=== PATIENT | male | born 1990 | race Caucasian/White ===

== ENCOUNTER 2022-11-25 09:34 | Inpatient (IN) ==
[2022-11-25] MEDS ORDERED: SODIUM CHLORIDE 0.9% 1000ML 1,000 ML IV ONE ×2 (09:51→12:04)
--- NOTE | 2022-11-25 09:57 | Emergency Department Note ---
Impression & Plan Alcohol abuse, in remission, Generalized anxiety disorder, Alcohol withdrawal syndrome ED Provider Note NAME: BRITNEY HASSAN AGE: 32 SEX: M : 1990 ARRIVES VIA: Ambulance INFORMANT: Patient and EMS ED PROVIDER(S): Matty Stewart DO CHIEF COMPLAINT: ETOH abuse HPI: Patient is a 32-year-old male with past medical history of depression, anxiety and alcohol abuse who presents to the ER as he was at work today he became very worked up started having paresthesias in bilateral upper and lower extremities and had cramping of the arms. He felt like he could not hear any thing at this time this gradually has abated. Denies any headache or change in vision. He does have some chest tightness which occurred when this started. He admits that he gets this when he has these intermittent panic attacks. Denies any belly pain but does admit to some nausea and vomiting when he tries to stop drinking. No dysuria, urgency, or frequency. No other exacerbating or remittin g factors. Last drink was yesterday around noon. He drinks about 20 beers a day. Denies any suicidal or homicidal ideations. No auditory visual hallucinations. PAST MEDICAL HISTORY:See Below PAST SURGICAL HISTORY:See Below FAMILY HISTORY:See Below SOCIAL HISTORY:See Below HOME MEDICATIONS:See Below ALLERGIES:See Below VITALS:See Below PHYSICAL EXAMINATION: GENERAL: Sitting up in bed, alert, well appearing, well nourished, no distress, non-toxic EYE EXAM: normal conjunctiva. OROPHARYNX: no exudate, no erythema, lips, buccal mucosa, and tongue normal and mucous membranes are moist NECK: supple, no nuchal rigidity, no adenopathy, non-tender LUNGS: Clear to auscultation. Normal chest wall mechanics HEART: no murmurs, S1 normal and S2 normal ABDOMEN: abdomen soft, non-tender, normo-active bowel sounds, no masses, no rebound or guarding. UPPER EXTREMITIES: upper extremities are grossly normal. LOWER EXTREMITIES: No pitting edema. NEURO EXAM: Normal sensorium, cranial nerves II-XII grossly intact, normal spee ch, no gross weakness of arms, no gross weakness of legs. PSYCH: Denies any suicidal or homicidal ideations. No auditory visual hallucinations. MEDICAL DECISION MAKING: Patient is a 32-year-old male who presents the ER as he feels he is having a panic attack. Discussed with EMS who brought the patient in. IV was established blood work was obtained. Labs show no significant leukocytosis. No anemia. BMP with a mild anion gap of 18. T bili 1.7. LFTs TSH and lipase was unremarkable. UA was contaminated. Tox was negative with exception of marijuana. Alcohol 40. Patient was initially given IV fluids and then he started vomiting and became very tachycardic, tachypneic and having tremors. He was given Ativan and this improved. This reoccurred and he was again given 2 mg of Ativan as his heart rate went up into the 140s and his blood pressure trended up to 160s. Following this I do not feel he will tolerate outpatient treatment/Librium as he cannot keep anything down when this occurs. I discussed the case with Dr. Lopez for admission and further work-up in regards to the patient's presentation and treatment. Prior to talking to the hospitalist I had already spoke with care managers and were setting up outpatient treatment but after failing IV medications for second time I did feel he was prudent to bring him into the hospital. Do favor that this is all secondary to alcohol withdrawal. He has complete benign abdominal exam Triage Nursing notes reviewed. Limited review of prior medical records performed Vital Signs: reviewed and remarkable for tachycardia, hypertension Differential diagnosis: Differential diagnoses includes but is not limited to gastritis, peptic ulcer disease, GERD, gallbladder disease, pancreatitis, small bowel obstruction. ER treatment provided: See below Diagnostics interpreted by me include EKG and cardiac monitoring as listed below: -Cardiac Monitoring: An order was placed for continuous cardiac monitoring. The monitor shows a rate of 142 with sinus rhythm. -ECG: none -Laboratory studies:Interpreted by me as stated above in MDM and shown below. Consultation(s): As described above in MDM Procedures:none Critical Care: None Past Med/Surg History Medical History Alcohol abuse, in remission (~11/2020) Generalized anxiety disorder Major depression in partial remission (~2018) Surgical History Hx of sinus surgery Family History Father Hypertension Arthritis rhematoid Denies family history of Ovarian cancer Prostate cancer Diabetes Dyslipidemia Breast cancer Lung cancer Cancer Social History Smoking Status: Never smoker Second Hand Exposure: No; Hx Alcohol Use: Yes Hx Substance Use: Yes Preferred Language: Bolivian Communication Ability: Effective Visual Impairment: Limited Hearing Ability: Normal marital status: Single Current Living Situation Comment: room mate current occupational status: employed current occupation: [employer] How many Children do You have: 0 Feels Safe at Home: Yes Childhood Exposure to Second-Hand Smoke: Yes caffeine: Yes Dental Care, Regularly: Yes Physical Activity Frequency: 5-6 Times per Week Physical Activity Frequency Comment: walking/active lifestyle Seatbelt Use: always Sunscreen Use: Yes Do you think of yourself as: straight/heterosexual Gender Identity: Male Allergies Allergies Allergy/AdvReac Type Severity Reaction Status Date / Time No Known Allergies Allergy Verified 11/25/22 09:53 Home Meds Previous Rx's Medication Instructions Recorded bupropion HCl 300 mg 24 hr tablet, 300 mg PO QAM #30 tabs 06/24/22 extended release (Wellbutrin XL) Results & Data (ED) Vital Signs Vital Signs - 24 hr 11/25/22 10:03 Temperature 36.8 C Temperature Source Oral Pulse Rate 99 H Respiratory Rate 18 Respiratory Effort / Characteristics Non-Labored Respiratory Depth Normal Respiratory Pattern Regular Blood Pressure 157/85 H Blood Pressure Mean 109 Pulse Oximetry 98 Oxygen Delivery Method Room Air Sepsis New/Unexplained Change in Mental Status N/A Sepsis Action Taken by Nursing No Action Required Laboratory Data 11/25/22 Unknown 11/25/22 Unknown Administered Medications Discontinued Medications Sodium Chloride (Nss 1000ml) 1,000 mls @ 999 mls/hr IV .Q1H1M ONE Stop: 11/25/22 10:51 Last Infusion: 11/25/22 12:53 Dose: 0 mls/hr Documented By: Admin: 11/25/22 10:32 Dose: 999 mls/hr Documented By: PARISH Sodium Chloride (Nss 1000ml) 1,000 mls @ 999 mls/hr IV .Q1H1M ONE Stop: 11/25/22 13:04 Last Admin: 11/25/22 12:34 Dose: 999 mls/hr Documented By: LEONA Famotidine (Pepcid 20mg Iv Push) 20 mg in 5 mls @ 2.5 mls/min IV NOW STA Stop: 11/25/22 12:19 Last Admin: 11/25/22 12:34 Dose: 2.5 mls/min Documented By: LEONA Lorazepam (Lorazepam 2 Mg/1 Ml Vial) 1 mg IV NOW STA Stop: 11/25/22 10:25 Last Admin: 11/25/22 10:32 Dose: 1 mg Documented By: PARISH Lorazepam (Lorazepam 2 Mg/1 Ml Vial) 2 mg IV NOW STA Stop: 11/25/22 12:05 Last Admin: 11/25/22 12:33 Dose: 2 mg Documented By: LEONA Metoclopramide HCl (Metoclopramide Hcl Inj 5 Mg/Ml 2 Ml Vial) 10 mg IV NOW STA Stop: 11/25/22 10:25 Last Admin: 11/25/22 10:32 Dose: 10 mg Documented By: PARISH Ondansetron HCl (Ondansetron Inj 2 Mg/Ml 2 Ml Vial) 4 mg IV NOW STA Stop: 11/25/22 12:05 Last Admin: 11/25/22 12:34 Dose: 4 mg Documented By: LEONA Discharge Plan Visit Data Chief Complaint: Alcohol Withdrawal ED Provider: Matty Stewart Discharge Problem: Alcohol abuse, in remission, Generalized anxiety disorder, Alcohol withdrawal syndrome Discharge Instructions Interventions: ED Discharge Assessment Last Done: 11/25/22 13:40
[2022-11-25] MEDS ORDERED: LORazepam 2 MG/1 ML VIAL IV STA ×2 (10:24→12:04)
[2022-11-25] MEDS ORDERED: METOCLOPRAMIDE HCL INJ 5 MG/ML 2 ML VIAL IV STA (10:24)
[2022-11-25 10:41] LABS: Basophils # (auto) 0.07 K/uL (0-0.2); Basophils % (auto) 0.8 %; Eosinophils # (auto) 0.02 K/uL (0-0.50); Eosinophils % (auto) 0.2 %; Hematocrit (blood only) 41.8 % (40.1-51.0); Immature Granulocytes # (auto) 0.03 K/uL (0.00-0.02); Immature Granulocytes % (auto) 0.4 %; Lymphocytes # (auto) 0.94 K/uL (1.2-3.4); Mean Corpuscular Hemoglobin 33.5 pg (25.0-34.0); Mean Corpuscular Hgb Conc 35.9 g/dL (32.0-36.0); Mean Corpuscular Volume 93.3 fL (80.0-100.0); Mean Platelet Volume 9.2 fL (9.4-12.4); Monocytes # (auto) 0.47 K/uL (0.24-0.82); Monocytes % (auto) 5.5 %; Neutrophils # (auto) 7.02 K/uL (1.4-6.5); Neutrophils % (auto) 82.1 %; Platelet Count 317 K/uL (130-400); RDW Coefficient of Variation 12.3 % (11.5-14.5); RDW Standard Deviation 42.4 fL (36.4-46.3); Red Blood Count 4.48 M/uL (4.63-6.08); White Blood Count 8.55 K/ul (4.8-10.8)
[2022-11-25 10:55] LABS: Appearance Urine Clear (Clear); Bacteria Urine Automated Negative (Negative); Bilirubin Urine Negative (Negative); Blood Urine 2+ (Negative); Color Urine Dark Yellow; Glucose Urine UA Negative (Negative); Ketones Urine 2+ (Negative); Leukocyte Esterase Urine Negative (Negative); Nitrite Urine Negative (Negative); Specific Gravity Urine 1.019 (1.000-1.030); Urobilinogen Urine Negative (Negative); pH Urine 7.5 (4.5-7.5)
[2022-11-25 10:56] LABS: Protein Urine 1+ (Negative)
[2022-11-25 11:05] LABS: Albumin Globulin Ratio 1.3 (0.9-2); Albumin Level 4.7 gm/dl (3.4-5.0); BUN Creatinine Ratio 12.1 (10-20); Bilirubin,Total 1.7 mg/dl (0.2-1.0); Calcium 9.7 mg/dl (8.5-10.1); Creatinine Clr Calc Pharmacy 204.2 ml/min; Est GFR (African American) 147.2 ml/min; Globulin 3.6 gm/dl (2.5-4.0); Potassium 4.1 mmol/L (3.5-5.1); Total Protein 8.3 gm/dl (6.0-8.3)
[2022-11-25 11:16] LABS: Acetaminophen < 3 ug/ml (10-30); Salicylate < 3.0 mg/dl (3.0-30)
[2022-11-25 11:46] LABS: Amphetamines+Metham, Urine Neg (Neg); Barbiturates, Urine Neg (Neg); Benzodiazepine, Urine Neg (Neg); Cocaine, Urine Neg (Neg); MDMA (Ecstacy), Urine Neg (Neg); Methadone, Urine Neg (Neg); Opiate, Urine Neg (Neg); Phencyclidine, Urine Neg (Neg)
[2022-11-25] MEDS ORDERED: ONDANSETRON INJ 2 MG/ML 2 ML VIAL IV STA (12:04)
--- NOTE | 2022-11-25 12:14 | History & Physical Report ---
Date of Service November 25, 2022 History of Present Illness Primary Care Provider: Thanh Somers DO Kavon is a 32-year-old male with a past medical history of rheumatoid arthritis, general anxiety disorder on bupropion, and alcohol abuse who presents with nausea/vomiting and a desire to reduce/quit alcohol but who was not able to be discharged home with a Librium taper due to recurrent nausea/vomiting and inability to keep medications down despite symptomatic treatment including Zofran and Reglan, and who is requiring push doses of lorazepam for symptom control. He does not have any history of seizure, syncope. He is at risk of seizure due to bupropion concurrent use. Endorses 12-20 beer use per day for the last month. Before this was sober for several months. Endorses anxiety which has been worsened. Does take bupropion regularly which is helpful, denies SI/HI. Has never had a seizure, no family history of seizure. Denies hallucinations. Is tremulous. Denies chest pain, chest pressure. Intermittent medical marijuana which she originally got for arthritis with secondary benefit to his anxiety, no use in 2 weeks. No history of GI bleeding, denies melena. No fever, chills, sweats. Does endorse tremulousness and sweatiness, feels his withdrawal is worse than it has been in the past and was more shaky requiring him to seek medical attention. Would prefer not to be in the hospital, but has had difficulty with nausea/vomiting and inability to keep down oral Librium. Agreeable to inpatient treatment of withdrawal, and referral to outpatient alcohol cessation resources. Alcohol cessation resources provided. Full code. Medical History: Reviewed Medications: Reviewed Surgical History: Reviewed Allergies: Reviewed Social History: Endorses alcohol, medical marijuana use. Denies tobacco use Code Status: Full code Allergies Allergy/AdvReac Type Severity Reaction Status Date / Time No Known Allergies Allergy Verified 11/25/22 09:53 Home Medications Medication Instructions Recorded Confirmed Type bupropion HCl 300 mg 24 hr tablet, 300 mg PO QAM #30 tabs 06/24/22 11/25/22 Rx extended release (Wellbutrin XL) Past Med/Surg History Medical History Alcohol abuse, in remission (~11/2020) Generalized anxiety disorder Major depression in partial remission (~2018) Surgical History Hx of sinus surgery Family History Father Hypertension Arthritis rhematoid Denies family history of Ovarian cancer Prostate cancer Diabetes Dyslipidemia Breast cancer Lung cancer Cancer Social History Smoking Status: Never smoker Second Hand Exposure: No; Hx Alcohol Use: Yes Hx Substance Use: Yes Preferred Language: Arabic Communication Ability: Effective Visual Impairment: Limited Hearing Ability: Normal marital status: Single Current Living Situation Comment: room mate current occupational status: employed current occupation: [employer] How many Children do You have: 0 Feels Safe at Home: Yes Childhood Exposure to Second-Hand Smoke: Yes caffeine: Yes Dental Care, Regularly: Yes Physical Activity Frequency: 5-6 Times per Week Physical Activity Frequency Comment: walking/active lifestyle Seatbelt Use: always Sunscreen Use: Yes Do you think of yourself as: straight/heterosexual Gender Identity: Male Review of Systems Review of Systems: All systems reviewed & are unremarkable except as noted in HPI & below Physical Exam Physical Exam: General: A&Ox3. Appears tremulous. No acute distress HEENT: Atraumatic, normocephalic. Vision/hearing grossly intact. Pupils equal and reactive to light. Pulm: CTAB A&P. -wheezes, -rales, -rhonchi. Symmetrical chest rise. No increased work of breathing. No respiratory distress. Cardiac: Tachycardic, regular. No murmurs radial pulses intact and symmetrical. Abdominal: Mild epigastric tenderness, no rebound, soft, no guarding. BS present. Extremities: Warm, slightly moist. Bilateral hand tremor on extension, no asterixis. Sensation to soft touch intact in hands and feet. 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 Results & Data Results & Data ([facility]) Vital Signs (Past 12 Hours) Vital Signs Temp Pulse Resp BP Pulse Ox O2 Del Method 11/25/22 10:03 36.8 C 99 H 18 157/85 H 98 Room Air PG Care Time/CCT Total # of Minutes Spent Total Time Spent with Patient: Total time spent is greater than 50% in coordination of care (as documented) at patient's floor/unit and/or counseling patient: Coding Level of Care Code 12661 INT INP/OBS CARE
[2022-11-25] MEDS ORDERED: FAMOTIDINE 20MG IV PUSH 20 MG/5 ML SYR IV STA (12:18)
[2022-11-25] MEDS ORDERED: chlordiazePOXIDE ALCOHOL WITHDRAWL 50MG PO STA (14:22)
[2022-11-25] MEDS ORDERED: LORazepam 2 MG/1 ML VIAL IV PRN ×4 (14:22)
[2022-11-25] MEDS ORDERED: ondansetron HCL 6 MG in DEXTROSE 5% 50 ML IV PRN (14:22)
[2022-11-25] MEDS ORDERED: Ativan IV Alcohol Withdrawal--Active Protocol IV PRN (14:22)
[2022-11-25] MEDS ORDERED: MULTI-VITAMIN INFUSION 10 ML, THIAMINE HCL 100 MG, FOLIC ACID 1 MG in SODIUM CHLORIDE 0... IV ONE (14:45)
[2022-11-25] MEDS: chlordiazePOXIDE HCl 25 MG CAP PO SCH ×2 (14:59→21:43)
--- NOTE | 2022-11-25 15:11 | Electrocardiogram Report ---
Test Reason : Blood Pressure : / mmHG Vent. Rate : 092 BPM Atrial Rate : 092 BPM P-R Int : 154 ms QRS Dur : 078 ms QT Int : 346 ms P-R-T Axes : 058 067 055 degrees QTc Int : 427 ms Normal sinus rhythm Normal ECG No previous ECGs available Confirmed by Ortiz Goddard ([id number]) on 11/25/2022 3:11:12 PM Referred By: REFERRED SELF Confirmed By:Ortiz Goddard
[2022-11-25] MEDS: FAMOTIDINE 20 MG in SYRINGE 3 ML IV SCH (21:43)
[2022-11-26] MEDS: chlordiazePOXIDE HCl 25 MG CAP PO SCH ×3 (04:43→16:44)
[2022-11-26 06:06] LABS: Basophils # (auto) 0.05 K/uL (0-0.2); Basophils % (auto) 0.7 %; Eosinophils # (auto) 0.12 K/uL (0-0.50); Eosinophils % (auto) 1.8 %; Hematocrit (blood only) 39.9 % (40.1-51.0); Hemoglobin 14.4 g/dl (14.0-18.0); Immature Granulocytes # (auto) 0.02 K/uL (0.00-0.02); Immature Granulocytes % (auto) 0.3 %; Lymphocytes # (auto) 1.84 K/uL (1.2-3.4); Lymphocytes % (auto) 27.3 %; Mean Corpuscular Hgb Conc 36.1 g/dL (32.0-36.0); Mean Corpuscular Volume 94.3 fL (80.0-100.0); Monocytes # (auto) 0.64 K/uL (0.24-0.82); Monocytes % (auto) 9.5 %; Neutrophils # (auto) 4.06 K/uL (1.4-6.5); Neutrophils % (auto) 60.4 %; Platelet Count 265 K/uL (130-400); RDW Coefficient of Variation 12.2 % (11.5-14.5); RDW Standard Deviation 42.2 fL (36.4-46.3); Red Blood Count 4.23 M/uL (4.63-6.08); White Blood Count 6.73 K/ul (4.8-10.8)
[2022-11-26 07:26] LABS: Alanine Aminotransferase 32 U/L (7-52); Albumin Globulin Ratio 1.3 (0.9-2); Albumin Level 4.2 gm/dl (3.4-5.0); Alkaline Phosphatase 50 U/L (34-104); Anion Gap 10 (3-11); Aspartate Aminotransferase 30 U/L (13-39); BUN Creatinine Ratio 11.5 (10-20); Blood Urea Nitrogen 7 mg/dl (6-23); Calcium 8.5 mg/dl (8.5-10.1); Carbon Dioxide 25 mmol/L (21-32); Chloride 104 mmol/L (98-107); Creatinine Clr Calc Pharmacy 222.9 ml/min; Est GFR (African American) > 150.0 ml/min; Est GFR (Non-African American) 131.2 ml/min; Globulin 3.3 gm/dl (2.5-4.0); Glucose 92 mg/dl (70-99(Fasting)); Potassium 3.7 mmol/L (3.5-5.1); Sodium 139 mmol/L (136-145); Total Protein 7.5 gm/dl (6.0-8.3)
[2022-11-26] MEDS: FAMOTIDINE 20 MG in SYRINGE 3 ML IV SCH (08:11)
[2022-11-26] MEDS ORDERED: buPROPion XL 300 MG TABCR PO SCH (09:00)
[2022-11-26] MEDS ORDERED: FOLIC ACID 1 MG in SYRINGE 9.8 ML IV SCH (09:00)
[2022-11-26] MEDS ORDERED: THIAMINE HCL 100 MG in SYRINGE 9 ML IV SCH (09:00)
--- NOTE | 2022-11-26 18:49 | Discharge Summary ---
Date of Service November 26, 2022 Admission HPI Per Admitting Provider Kavon is a 32-year-old male with a past medical history of rheumatoid arthritis, general anxiety disorder on bupropion, and alcohol abuse who presents with nausea/vomiting and a desire to reduce/quit alcohol but who was not able to be discharged home with a Librium taper due to recurrent nausea/vomiting and inability to keep medications down despite symptomatic treatment including Zofran and Reglan, and who is requiring push doses of lorazepam for symptom control. He does not have any history of seizure, syncope. He is at risk of seizure due to bupropion concurrent use. Endorses 12-20 beer use per day for the last month. Before this was sober for several months. Endorses anxiety which has been worsened. Does take bupropion regularly which is helpful, denies SI/HI. Has never had a seizure, no family history of seizure. Denies hallucinations. Is tremulous. Denies chest pain, chest pressure. Intermittent medical marijuana which she originally got for arthritis with secondary benefit to his anxiety, no use in 2 weeks. No history of GI bleeding, denies melena. No fever, chills, sweats. Does endorse tremulousness and sweatiness, feels his withdrawal is worse than it has been in the past and was more shaky requiring him to seek medical attention. Would prefer not to be in the hospital, but has had difficulty with nausea/vomiting and inability to keep down oral Librium. Agreeable to inpatient treatment of withdrawal, and referral to outpatient alcohol cessation resources. Alcohol cessation resources provided. Full code. Medical History: Reviewed Medications: Reviewed Surgical History: Reviewed Allergies: Reviewed Social History: Endorses alcohol, medical marijuana use. Denies tobacco use Code Status: Full code Principal Diagnosis Alcohol withdrawal, anxiety Discharge Exam In general he is awake and alert pleasant no distress. He is oriented. Breathing unlabored no accessory muscle use good effort. Skin shows no rashes no pallor or icterus. Neuro with no tremors, cranial nerves II through XII grossly intact gross motor and sensory intact. No tremors. Mental status is calm. Skin is not diaphoretic. Discharge Data Allergies Allergy/AdvReac Type Severity Reaction Status Date / Time No Known Allergies Allergy Verified 11/25/22 09:53 Consultations 11/25/22 12:05 ED Decision to Admit Stat Hospital Course (1) Alcohol withdrawal syndrome: Fortunately no alcohol withdrawal seizures, and while he is not yet very far removed from his last drink, he is probably a good 24 hours from his last drink with only minimal withdrawal symptoms that are easily controlled with Librium. Does appear to be safe/stable for homeoutlined "red flag" symptoms that would n ecessitate return to hospital. Librium taper. Refrain from driving while on Librium. Work note writtenreturning after end of taper. Discussed stress management techniques. Is set up for intensive outpatient alcohol counseling. Outpatient PCP follow-up. (2) Abnormal LFTs: Bilirubin 3.0outpatient follow-up. Total Time Total Time Spent Total Time Spent (In Minutes): Greater than 30 Discharge Plan Discharge Items Patient Disposition: Home - Self-Care Reason For Visit: ETOH WITHDRAWAL Discharge Diagnosis: alcohol withdrawal - improving Activity: Resume your previous activity Non-emergency contact: Primary Care Provider Call non-emergency contact if: you have any medication questions and your symptoms worsen Follow-up/Referrals: Thanh Somers DO [Primary Care Provider] - 12/03/22 2:45 pm (Appointment with Ramírez Jackman PA-C) Diet: Regular Addtl Attending Provider Instructions: if you were to notice worsening shaking/tremulousness, worsening anxiety, sweating, or feeling like your heart is racing - we would want to have you come back rosnana (those would all be signs that the withdrawal is worsening - in which case we definitely would want you under medical supervision) -- however, that is really unlikely to happen we'll treat out the withdrawal symptoms with a short taper of librium (chlordiazepoxide) - 50mg three times a day tomorrow, twice a day for the following 2 days, daily for the last 2 days. as you get to the lower doses, if you notice worsening of symptoms give dr somers a call - but again that's not a likely occurrence. i'd recommend against driving while on the librium - it can slow cognition and reaction time some work on the stress management skills we talked about in addition the intensive outpatient rehab program, and take care of yourself! Pending Studies at Discharge: No Stand-Alone Forms: [employer], Work/School Release, Smoking Cessation Medications and DC Order Prescriptions: New chlordiazepoxide HCl 25 mg Capsule 50 mg PO UD Qty: 9 0RF Continued bupropion HCl [Wellbutrin XL] 300 mg tablet extended release 24 hr 300 mg PO QAM Qty: 30 5RF Discharge Orders: Discharge Order (Routine); Ordered 11/26/22 Ordered By: Matty aCrdoza Admission Data Admit Date/Time: 11/25/22 12:29 Attending Provider: Matty Cardoza Admit Provider: Jamil Durand Primary Care Provider: Thanh Somers Other Providers: Jamil Durand Other Interventions: Discharge Summary Assessment (RN) Last Done: 11/26/22 17:12 Coding Level of Care Code HOSP INP/OBS DISCH >30 MIN Diagnoses Alcohol withdrawal syndrome F10.939 Abnormal LFTs R79.89
[2022-11-26] MEDS ORDERED: FAMOTIDINE 20 MG TAB PO SCH (21:00)
[2022-11-27 08:32] LABS: Marijuana Quant, GCMS Urine 1679 ng/mL (<5)
== END 2022-11-26 17:51 | disposition home or self-care (01) | DRG 897 ==
LOC: ED 09:34 → SUATTDRO 12:29 → EDINP 12:29 → 2W 20:12

== ENCOUNTER 2023-02-17 20:56 | Observation (INO) ==
[2023-02-17] MEDS ORDERED: LORazepam 2 MG/1 ML VIAL IV PRN ×4 (21:13→23:45)
[2023-02-17] MEDS ORDERED: chlordiazePOXIDE HCl 25 MG CAP PO ONE (21:13)
[2023-02-17] MEDS ORDERED: LORazepam 2 MG/1 ML VIAL IV STA (21:13)
[2023-02-17] MEDS ORDERED: MULTI-VITAMIN INFUSION 10 ML, THIAMINE HCL 100 MG, FOLIC ACID 1 MG in SODIUM CHLORIDE 0... IV ONE (21:13)
[2023-02-17] MEDS ORDERED: Ativan IV Alcohol Withdrawal--Active Protocol IV PRN ×2 (21:13→23:45)
--- NOTE | 2023-02-17 21:17 | Emergency Department Note ---
Impression & Plan Alcohol withdrawal syndrome, Alcohol abuse ED Provider Note NAME: BRITNEY HASSAN AGE: 32 SEX: M : 1990 ARRIVES VIA: Walk-In INFORMANT: Patient, ED PROVIDER(S): Yonatan Montes MD CHIEF COMPLAINT: Alcohol withdrawal MEDICAL DECISION MAKING: Patient presents due to concern for alcohol withdrawal and is requesting inpat ient rehab. Given the patient's significant drinking and that I do not believe it is suitable it is to go directly to rehab. IV was established blood work was obtained and the patient did have IV Ativan ordered in addition to p.o. Librium 100 mg. Upon reassessment the patient did seem to be improved as his heart rate is improved. The patient's blood work showed normal white count H&H and platelet count. Kidney function is unremarkable. Anion gap slightly elevated at 14 but did receive additional IV fluids. Alcohol is 383. COVID-negative. Given the patient's significant alcohol use with possible withdrawal related symptoms and the patient requested to go to rehab do not believe the patient can be discharged at this time. I did speak the on-call hospitalist service Dr. Dunlap and the patient was admitted to the medicine service. Critical Care: I have personally spent 35 minutes of critical care time in direct management of this patient. This includes bedside care, interpretation of diagnostic studies, and testing, discussion with consultants, patient, and family members, and other require inpatient management activities. This 35 minutes is in excess of all separately billable procedures. Prior /Outside records reviewed: None Differential diagnosis: Alcohol intoxication, toxicologic, infection, hypoglycemia, electrolyte abnormalities, cardiac sources, intracerebral event, neurologic, trauma, as well as other pathologies. Diagnostics, as interpreted by me: ECG: Normal sinus rhythm, rate of 96, normal intervals normal axis no ST elevations. No significant change for comparison November 2022 Cardiac monitoring: An order was placed for continuous cardiac monitoring. The monitor shows a rate of 112 with tachycardic and regular rhythm. Patient was placed on pulse oximetry Medical decision rules: none Imaging studies: See below HPI: Patient presents due to concern for alcohol withdrawal concerns and requesting inpatient rehab. The patient states that he has had periods of sobriety but then is unable to continue to stay sober. The patient denies any chest pains or shortness of breath but does have some abdominal cramping. The patient has had no nausea or vomiting. The patient does relate that his last drink was at 11 AM today. The patient would like inpatient rehab. He typically drinks 16 heavy beers daily and has been doing so for many months. Patient denies any tobacco or drug use. PAST MEDICAL HISTORY: See Below PAST SURGICAL HISTORY: See Below SOCIAL HISTORY: See Below HOME MEDICATIONS: See Below ALLERGIES: See Below VITALS: See Below PHYSICAL EXAMINATION: GENERAL: Wearing glasses and a mask. EYE EXAM: Normal conjunctiva. PERRL, no anisocoria and EOM's grossly intact w/o pain. Oropharynx: Dry mucous membranes, no obvious tongue fasciculations. NECK: Supple, no nuchal rigidity, no adenopathy, non-tender. No signs of meningismus. FROM of the neck with good chin to chest and neck extension. No stridor. LUNGS: Clear to auscultation. Normal chest wall mechanics. HEART: Tachycardic and regular, no MRG. ABDOMEN: Abdomen soft, non-tender, no masses, no rebound or guarding. BACK: No CVA TTP. SKIN: No rashes and no bruising. UPPER EXTREMITIES: Upper extremities are grossly normal. No significant upper e xtremity tremor. LOWER EXTREMITIES: Grossly normal, no edema. NEURO EXAM: A&O x3, cranial nerves II-XII grossly intact, normal speech, moves all 4 extremities. Past Med/Surg History Medical History Alcohol abuse, in remission (~11/2020) Generalized anxiety disorder Major depression in partial remission (~2018) Surgical History Hx of sinus surgery Family History Father Hypertension Arthritis rhematoid Denies family history of Ovarian cancer Prostate cancer Diabetes Dyslipidemia Breast cancer Lung cancer Cancer Social History Smoking Status: Never smoker Second Hand Exposure: Yes; Hx Alcohol Use: Yes Alcohol type: beer Hx Substance Use: Yes Last Used Substance: Days (ago) Preferred Language: Mosotho Communication Ability: Effective Visual Impairment: Limited Hearing Ability: Normal Sea Shell Gatherer Required: No Beliefs That Will Affect Care: None marital status: Single Current Living Situation: Other Current Living Situation Comment: roommate current occupational status: employed current occupation: [employer] How many Children do You have: 0 Feels Safe at Home: Yes Childhood Exposure to Second-Hand Smoke: Yes caffeine: Yes Dental Care, Regularly: Yes Physical Activity Frequency: 5-6 Times per Week Physical Activity Frequency Comment: walking/active lifestyle Seatbelt Use: always Sunscreen Use: Yes Do you think of yourself as: straight/heterosexual Gender Identity: Male Assistive Devices: None Allergies Allergies Allergy/AdvReac Type Severity Reaction Status Date / Time No Known Drug Allergies Allergy Verified 01/07/23 15:31 Home Meds Home Medications Medication Instructions Recorded Confirmed No Known Home Medications 02/17/23 02/17/23 Results & Data (ED) Vital Signs Vital Signs - 24 hr 02/17/23 20:57 02/17/23 21:13 02/17/23 22:09 Temperature 36.5 C Temperature Source Temporal Artery Scan Pulse Rate 118 H 93 H Respiratory Rate 18 Respiratory Effort / Characteristics Non-Labored Spontaneous Respiratory Depth Normal Blood Pressure 145/102 H Blood Pressure Mean 116 Blood Pressure Position Sitting Pulse Oximetry 99 Oxygen Delivery Method Room Air Room Air Sepsis Recent Fever Within 48 Hours No Sepsis New/Unexplained Change in Mental Status No Sepsis Action Taken by Nursing No Action Required Home Medications Current Medication List: was personally reviewed by me Laboratory Data Attestation: I reviewed the patient's lab results. 02/17/23 21:37 02/17/23 21:37 Lab Results 02/17/23 02/17/23 02/17/23 Range/Units 21:13 21:37 21:37 WBC 6.03 (4.8-10.8) K/ul RBC 4.73 (4.70-6.10) M/uL Hgb 15.7 (14.0-18.0) g/dl Hct 43.3 (42.0-52.0) % MCV 91.5 (80.0-100.0) fL MCH 33.2 (25.0-34.0) pg MCHC 36.3 H (32.0-36.0) g/dL RDW Std Deviation 45.4 (36.4-46.3) fL RDW Coeff of Georiga 13.4 (11.5-14.5) % Plt Count 391 (130-400) K/uL MPV 8.9 L (9.4-12.4) fL Immature Gran % (Auto) 0.3 % Neut % (Auto) 65.3 % Lymph % (Auto) 27.4 % Sandoval % (Auto) 6.1 % Eos % (Auto) 0.2 % Baso % (Auto) 0.7 % Neut # (Auto) 3.94 (1.40-6.50) K/uL Lymph # (Auto) 1.65 (1.2-3.4) K/uL Sandoval # (Auto) 0.37 (0.11-0.59) K/uL Eos # (Auto) 0.01 (0-0.50) K/uL Baso # (Auto) 0.04 (0-0.2) K/uL Immature Gran # (Auto) 0.02 (0.01-0.20) K/uL Sodium (136-145) mmol/L Potassium (3.5-5.1) mmol/L Chloride (98-107) mmol/L Carbon Dioxide (21-32) mmol/L Anion Gap (3-11) BUN (6-23) mg/dl Creatinine (0.6-1.4) mg/dl Est Cr Clr Drug Dosing ml/min Est GFR ( Amer) ml/min Est GFR (Non-Af Amer) ml/min BUN/Creatinine Ratio (10-20) Glucose (70-99(Fasting)) mg/dl POC Glucose (70-99) mg/dl Calcium (8.6-10.3) mg/dl Total Bilirubin (0.2-1.0) mg/dl AST (13-39) U/L ALT (7-52) U/L Alkaline Phosphatase (34-104) U/L Total Protein (6.0-8.3) gm/dl Albumin (3.4-5.0) gm/dl Globulin (2.5-4.0) gm/dl Albumin/Globulin Ratio (0.9-2) Vitamin B12 Cancelled Cancelled Folate Cancelled Ethyl Alcohol mg/dL (<10.0) mg/dl SARS-CoV-2, RNA, NAAT (NEGATIVE) 02/17/23 02/17/23 02/17/23 Range/Units 21:37 21:37 22:07 WBC (4.8-10.8) K/ul RBC (4.70-6.10) M/uL Hgb (14.0-18.0) g/dl Hct (42.0-52.0) % MCV (80.0-100.0) fL MCH (25.0-34.0) pg MCHC (32.0-36.0) g/dL RDW Std Deviation (36.4-46.3) fL RDW Coeff of [place] (11.5-14.5) % Plt Count (130-400) K/uL MPV (9.4-12.4) fL Immature Gran % (Auto) % Neut % (Auto) % Lymph % (Auto) % Sandoval % (Auto) % Eos % (Auto) % Baso % (Auto) % Neut # (Auto) (1.40-6.50) K/uL Lymph # (Auto) (1.2-3.4) K/uL Sandoval # (Auto) (0.11-0.59) K/uL Eos # (Auto) (0-0.50) K/uL Baso # (Auto) (0-0.2) K/uL Immature Gran # (Auto) (0.01-0.20) K/uL Sodium 139 (136-145) mmol/L Potassium 4.2 (3.5-5.1) mmol/L Chloride 99 (98-107) mmol/L Carbon Dioxide 26 (21-32) mmol/L Anion Gap 14 H (3-11) BUN 6 (6-23) mg/dl Creatinine 0.69 (0.6-1.4) mg/dl Est Cr Clr Drug Dosing 167.1 ml/min Est GFR ( Amer) 144.6 ml/min Est GFR (Non-Af Amer) 124.7 ml/min BUN/Creatinine Ratio 8.7 L (10-20) Glucose 101 H (70-99(Fasting)) mg/dl POC Glucose 99 (70-99) mg/dl Calcium 9.5 (8.6-10.3) mg/dl Total Bilirubin 0.6 (0.2-1.0) mg/dl AST 34 (13-39) U/L ALT 39 (7-52) U/L Alkaline Phosphatase 63 (34-104) U/L Total Protein 8.2 (6.0-8.3) gm/dl Albumin 4.6 (3.4-5.0) gm/dl Globulin 3.6 (2.5-4.0) gm/dl Albumin/Globulin Ratio 1.3 (0.9-2) Vitamin B12 Folate Ethyl Alcohol mg/dL 383.3 H (<10.0) mg/dl SARS-CoV-2, RNA, NAAT (NEGATIVE) 02/17/23 Range/Units 22:12 WBC (4.8-10.8) K/ul RBC (4.70-6.10) M/uL Hgb (14.0-18.0) g/dl Hct (42.0-52.0) % MCV (80.0-100.0) fL MCH (25.0-34.0) pg MCHC (32.0-36.0) g/dL RDW Std Deviation (36.4-46.3) fL RDW Coeff of [place] (11.5-14.5) % Plt Count (130-400) K/uL MPV (9.4-12.4) fL Immature Gran % (Auto) % Neut % (Auto) % Lymph % (Auto) % Sandoval % (Auto) % Eos % (Auto) % Baso % (Auto) % Neut # (Auto) (1.40-6.50) K/uL Lymph # (Auto) (1.2-3.4) K/uL Sandoval # (Auto) (0.11-0.59) K/uL Eos # (Auto) (0-0.50) K/uL Baso # (Auto) (0-0.2) K/uL Immature Gran # (Auto) (0.01-0.20) K/uL Sodium (136-145) mmol/L Potassium (3.5-5.1) mmol/L Chloride (98-107) mmol/L Carbon Dioxide (21-32) mmol/L Anion Gap (3-11) BUN (6-23) mg/dl Creatinine (0.6-1.4) mg/dl Est Cr Clr Drug Dosing ml/min Est GFR ( Amer) ml/min Est GFR (Non-Af Amer) ml/min BUN/Creatinine Ratio (10-20) Glucose (70-99(Fasting)) mg/dl POC Glucose (70-99) mg/dl Calcium (8.6-10.3) mg/dl Total Bilirubin (0.2-1.0) mg/dl AST (13-39) U/L ALT (7-52) U/L Alkaline Phosphatase (34-104) U/L Total Protein (6.0-8.3) gm/dl Albumin (3.4-5.0) gm/dl Globulin (2.5-4.0) gm/dl Albumin/Globulin Ratio (0.9-2) Vitamin B12 Folate Ethyl Alcohol mg/dL (<10.0) mg/dl SARS-CoV-2, RNA, NAAT NEGATIVE (NEGATIVE) Administered Medications Discontinued Medications Chlordiazepoxide HCl (Chlordiazepoxide Hcl 25 Mg Cap) 100 mg PO NOW ONE Stop: 02/17/23 21:14 Last Admin: 02/17/23 21:45 Dose: 100 mg Documented By: ARS Multivitamins 10 ml/ Thiamine HCl 100 mg/ Folic Acid 1 mg/Sodium Chloride 1,011.2 mls @ 999 mls/hr IV .Q1H1M ONE Stop: 02/17/23 22:13 Last Admin: 02/17/23 21:45 Dose: 999 mls/hr Documented By: ARS Lorazepam (Lorazepam 2 Mg/1 Ml Vial) 2 mg IV NOW STA Stop: 02/17/23 21:14 Last Admin: 02/17/23 21:45 Dose: 2 mg Documented By: ARS Discharge Plan Visit Data Chief Complaint: Alcohol Withdrawal Stated Complaint: ALCOHOL WITHDRAWAL ED Provider: Yonatan Montes Discharge Problem: Alcohol withdrawal syndrome, Alcohol abuse Forms Stand Alone Forms: My [facility], Suicide Prevention Resources Prescriptions Prescriptions: No Action No Known Home Medications Referrals Referrals: Thanh Somers DO [Primary Care Provider] -
[2023-02-17 22:06] LABS: Basophils # (auto) 0.04 K/uL (0-0.2); Basophils % (auto) 0.7 %; Eosinophils # (auto) 0.01 K/uL (0-0.50); Eosinophils % (auto) 0.2 %; Hematocrit (blood only) 43.3 % (42.0-52.0); Hemoglobin 15.7 g/dl (14.0-18.0); Immature Granulocytes # (auto) 0.02 K/uL (0.01-0.20); Immature Granulocytes % (auto) 0.3 %; Lymphocytes # (auto) 1.65 K/uL (1.2-3.4); Lymphocytes % (auto) 27.4 %; Mean Corpuscular Hemoglobin 33.2 pg (25.0-34.0); Mean Corpuscular Hgb Conc 36.3 g/dL (32.0-36.0); Mean Corpuscular Volume 91.5 fL (80.0-100.0); Mean Platelet Volume 8.9 fL (9.4-12.4); Monocytes # (auto) 0.37 K/uL (0.11-0.59); Monocytes % (auto) 6.1 %; Neutrophils # (auto) 3.94 K/uL (1.40-6.50); Neutrophils % (auto) 65.3 %; Platelet Count 391 K/uL (130-400); RDW Coefficient of Variation 13.4 % (11.5-14.5); RDW Standard Deviation 45.4 fL (36.4-46.3); Red Blood Count 4.73 M/uL (4.70-6.10); White Blood Count 6.03 K/ul (4.8-10.8)
[2023-02-17 22:20] LABS: Albumin Globulin Ratio 1.3 (0.9-2); Albumin Level 4.6 gm/dl (3.4-5.0); BUN Creatinine Ratio 8.7 (10-20); Bilirubin,Total 0.6 mg/dl (0.2-1.0); Calcium 9.5 mg/dl (8.6-10.3); Creatinine Clr Calc Pharmacy 167.1 ml/min; Est GFR (African American) 144.6 ml/min; Est GFR (Non-African American) 124.7 ml/min; Globulin 3.6 gm/dl (2.5-4.0); Potassium 4.2 mmol/L (3.5-5.1); Total Protein 8.2 gm/dl (6.0-8.3)
--- NOTE | 2023-02-17 23:00 | History & Physical Report ---
Date of Service February 17, 2023 Assessment & Plan (1) Alcohol withdrawal syndrome: Plan: Kavon Ralph is a 32yo M with PMH of alcohol use disorder here for concern of alcohol withdrawal. Alcohol withdrawal - Last drink 02/17 11AM per patient - Drinking about 6 "tall boys" per day - AWSS protocol ordered - Given Librium 100mg x1 in ED -- will hold further dosing at this time, can consider continuation tomorrow - Thiamine and folate daily - Patient wishes to seek inpatient rehabilitation - Also mentioned he is interested in possibly using naltrexone IM for his AUD Depression/anxiety - Patient reports seeing a therapist in outpt setting - No current medications DVT ppx: SCDs Diet: Regular, NSS @ 100cc/h x 1 bag Dispo: Admit to med tele CODE STATUS: FULL (2) Alcohol abuse: (3) Major depression in partial remission: (4) Generalized anxiety disorder: History of Present Illness Primary Care Provider: Thanh Somers DO Kavon Ralph is a 32yo M with PMH of alcohol use disorder here for concern of alcohol withdrawal. He states he has been drinking again as of the past 3 weeks due to a new job situation with new hours. Started with drinking 2-3 tall boys (16oz) of beer per day and now has gotten up to about 6 per day, which is consistent with his previous use. He states his last drink was today around 11AM and feels that he has already started to feel some withdrawal symptoms. He has been able to stop alcohol use in the past but is unable to maintain his abstinence. Symptoms currently include anxiety, mild tremors, abdominal discomfort. Currently denies [place], dizziness, n/v, CP, palp, SOB. Denies drug use. States he is interested in discussing inpt rehab and naltrexone for his AUD. Given Ativan 3mg x1, Ativan 2mg x1, Librium 100mg x1, and Banana bag x1 in ED. Allergies Allergy/AdvReac Type Severity Reaction Status Date / Time No Known Drug Allergies Allergy Verified 01/07/23 15:31 Home Medications Medication Instructions Recorded Confirmed Type No Known Home Medications 02/17/23 02/17/23 History Past Med/Surg History Medical History Alcohol abuse, in remission (~11/2020) Generalized anxiety disorder Major depression in partial remission (~2018) Surgical History Hx of sinus surgery Family History Father Hypertension Arthritis rhematoid Denies family history of Ovarian cancer Prostate cancer Diabetes Dyslipidemia Breast cancer Lung cancer Cancer Social History Smoking Status: Never smoker Second Hand Exposure: Yes; Hx Alcohol Use: Yes Alcohol type: beer Hx Substance Use: Yes Last Used Substance: Days (ago) Preferred Language: Greek Communication Ability: Effective Visual Impairment: Limited Hearing Ability: Normal Grizzly Worker Required: No Beliefs That Will Affect Care: None marital status: Single Current Living Situation: Other Current Living Situation Comment: roommate current occupational status: employed current occupation: [employer] How many Children do You have: 0 Feels Safe at Home: Yes Childhood Exposure to Second-Hand Smoke: Yes caffeine: Yes Dental Care, Regularly: Yes Physical Activity Frequency: 5-6 Times per Week Physical Activity Frequency Comment: walking/active lifestyle Seatbelt Use: always Sunscreen Use: Yes Do you think of yourself as: straight/heterosexual Gender Identity: Male Assistive Devices: None Review of Systems Review of Systems: per HPI Physical Exam Physical Exam: GENERAL: A&Ox3. NAD. HEENT: PERRL, EOMI. Dry mucous membranes. NECK: No JVD. No lymphadenopathy. CHEST/LUNGS: CTAB A/P. No crackles, wheezes, rales, rhonchi. HEART: Tachycardic, regular. No m/g/r. No carotid bruits. ABDOMEN: NT/ND, soft. BS+ x4 EXTREMITIES: No cyanosis, no clubbing, no edema SKIN: Warm and dry. No rashes or lesions. PSYCHIATRIC: Euthymic affect, no SI, no pressured speech, no hallucinations NEUROLOGIC: No FND. CN II-XII grossly intact. Results & Data Results & Data Vital Signs (Past 12 Hours) Vital Signs Temp Pulse Resp BP Pulse Ox O2 Del Method 02/17/23 22:09 93 H 02/17/23 21:13 Room Air 02/17/23 20:57 36.5 C 118 H 18 145/102 H 99 Room Air Code Status & VTE Plan VTE Prophylaxis Plan VTE Prophylaxis will be ordered: Yes Supervising Physician Co-Signing Physician Notes Attending addendum: I have physically seen this patient, have supervised the medical residents activities, and agree with the H&P unless as otherwise noted. Assessment and Plan: Alcohol use disorder/alcohol withdrawal- Alcohol level 383.3 on admission [facility] protocol with IV Ativan Admit to monitored bed Thiamine 100 mg p.o. every morning Folic acid 1 mg p.o. every morning Nephro caps 1 p.o. every morning Given Librium 100 mg in the ED, hold on additional dosing Depression/anxiety- Follow while in hospital, currently on no medications Resident Activity Tracking Resident Involvement: Resident Care Provided Care Provided: Adult Hospital Medicine (1) Alcohol withdrawal syndrome Complication of substance-induced condition: uncomplicated Qualified Code(s): F10.930 - Alcohol use, unspecified with withdrawal, uncomplicated
[2023-02-17] MEDS ORDERED: POLYETHYLENE (MIRALAX) 17 GM PACK PO PRN (23:45)
[2023-02-17] MEDS ORDERED: SODIUM CHLORIDE 0.9% 1000ML 1,000 ML IV SCH (23:45)
[2023-02-17] MEDS ORDERED: ACETAMINOPHEN 325 MG TAB PO PRN (23:45)
[2023-02-17] MEDS ORDERED: ONDANSETRON INJ 2 MG/ML 2 ML VIAL IV PRN (23:45)
[2023-02-17 23:47] LABS: Vitamin B12 372 pg/ml (180-914)
[2023-02-18] MEDS: LORazepam 2 MG/1 ML VIAL IV PRN ×5 (00:24→20:15)
[2023-02-18] MEDS: THIAMINE HCL 100 MG TAB PO SCH (09:02)
[2023-02-18] MEDS: FOLIC ACID 1 MG TAB PO SCH (09:02)
--- NOTE | 2023-02-18 10:50 | Hospitalist Progress Note ---
Date of Service February 18, 2023 Assessment & Plan (1) Alcohol withdrawal syndrome: Plan: Chronic alcohol use disorder with acute alcohol withdrawal high risk Alcohol withdrawal patient be started on scheduled and taper gabapentin and scheduled and taper chlordiazepoxide on 02/18/2023 - [facility] protocol ordered - Thiamine and folate daily - Patient wishes to seek out patient rehabilitation currently enrolled in [employer] - Also mentioned he is interested in possibly using naltrexone for his AUD Depression/anxiety chronic unstable, influencing his substance abuse - Patient reports seeing a therapist in outpt setting - No current medications DVT ppx: SCDs CODE STATUS: FULL (2) Alcohol abuse: (3) Major depression in partial remission: (4) Generalized anxiety disorder: Admission and Anticipated Discharge Date Admission Date: February 17, 2023 Subjective Patient is tremulous says he is depressed does not feel well had nausea postpr andially Physical Exam Physical Exam: Patient looks withdrawn Resting and intention tremor seen no asterixis cardiac exam is tachycardic no murmurs Lungs are clear Other than the tremors neurologically is nonfocal Results & Data Results & Data Vital Signs (Past 12 Hours) Vital Signs Temp Pulse Pulse Resp BP BP BP 02/18/23 08:42 98.2 F 96 H 14 132/70 02/18/23 08:00 103 H 02/18/23 01:19 102 H 02/18/23 04:10 98.2 F 107 H 18 100/53 L 02/18/23 01:10 02/18/23 01:10 99.0 F 98 H 18 145/88 H 02/18/23 00:30 95 H 20 147/103 H 02/18/23 00:00 103 H 13 02/17/23 23:30 98 H 23 02/17/23 23:59 103 H 16 152/99 H 02/17/23 23:03 98.6 F 98 H 20 174/111 H Pulse Ox O2 Del Method 02/18/23 08:42 95 Room Air 02/18/23 08:00 02/18/23 01:19 02/18/23 04:10 94 Room Air 02/18/23 01:10 Room Air 02/18/23 01:10 95 Room Air 02/18/23 00:30 95 Room Air 02/18/23 00:00 97 02/17/23 23:30 95 Room Air 02/17/23 23:59 98 Room Air 02/17/23 23:03 95 Room Air PG Care Time/CCT Total # of Minutes Spent Total Time Spent with Patient: Total time spent is greater than 50% in coordination of care (as documented) at patient's floor/unit and/or counseling patient: Coding Level of Care Code 94492 SUB INP/OBS CARE 2/35MIN Diagnoses Alcohol withdrawal syndrome F10.930 Complication of substance-induced condition: uncomplicated Alcohol abuse F10.10 Major depression in partial remission F32.4 Generalized anxiety disorder F41.1 (1) Alcohol withdrawal syndrome Complication of substance-induced condition: uncomplicated Qualified Code(s): F10.930 - Alcohol use, unspecified with withdrawal, uncomplicated
[2023-02-18] MEDS ORDERED: chlordiazePOXIDE ALCOHOL WITHDRAWL 25MG PO STA (16:36)
[2023-02-18] MEDS ORDERED: GABAPENTIN 1200MG ALCOHOL WITHDRAWAL LOAD PO STA (16:36)
[2023-02-18] MEDS ORDERED: GABAPENTIN 600 MG TAB PO ONE (17:00)
[2023-02-18] MEDS: chlordiazePOXIDE HCl 25 MG CAP PO SCH (17:22)
--- NOTE | 2023-02-18 21:22 | Billing Data ---
Date of Service February 18, 2023 Coding Level of Care Code 25120 INT INP/OBS CARE
[2023-02-19] MEDS: chlordiazePOXIDE HCl 25 MG CAP PO SCH ×4 (00:07→20:59)
[2023-02-19] MEDS: LORazepam 2 MG/1 ML VIAL IV PRN ×4 (00:07→23:58)
[2023-02-19] MEDS: GABAPENTIN 600 MG TAB PO SCH ×4 (00:07→21:56)
[2023-02-19 05:00] LABS: Basophils # (auto) 0.05 K/uL (0-0.2); Basophils % (auto) 0.7 %; Eosinophils # (auto) 0.09 K/uL (0-0.50); Eosinophils % (auto) 1.3 %; Hematocrit (blood only) 39.9 % (42.0-52.0); Hemoglobin 13.8 g/dl (14.0-18.0); Immature Granulocytes # (auto) 0.02 K/uL (0.01-0.20); Immature Granulocytes % (auto) 0.3 %; Lymphocytes # (auto) 1.77 K/uL (1.2-3.4); Lymphocytes % (auto) 26.2 %; Mean Corpuscular Hemoglobin 32.9 pg (25.0-34.0); Mean Corpuscular Hgb Conc 34.6 g/dL (32.0-36.0); Mean Corpuscular Volume 95.2 fL (80.0-100.0); Mean Platelet Volume 9.1 fL (9.4-12.4); Monocytes # (auto) 0.88 K/uL (0.11-0.59); Neutrophils # (auto) 3.94 K/uL (1.40-6.50); Neutrophils % (auto) 58.5 %; Platelet Count 307 K/uL (130-400); RDW Coefficient of Variation 13.1 % (11.5-14.5); RDW Standard Deviation 45.7 fL (36.4-46.3); Red Blood Count 4.19 M/uL (4.70-6.10); White Blood Count 6.75 K/ul (4.8-10.8)
--- NOTE | 2023-02-19 05:34 | Electrocardiogram Report ---
Test Reason : Blood Pressure : / mmHG Vent. Rate : 096 BPM Atrial Rate : 096 BPM P-R Int : 168 ms QRS Dur : 082 ms QT Int : 342 ms P-R-T Axes : 054 039 031 degrees QTc Int : 432 ms Poor data quality, interpretation may be adversely affected Normal sinus rhythm Possible Left atrial enlargement Septal infarct , age undetermined Abnormal ECG When compared with ECG of 25-NOV-2022 10:31, Septal infarct is now Present Confirmed by Wild Long ([id number]) on 02/19/2023 5:34:18 AM Referred By: REFERRED SELF Confirmed By:Wild Long
[2023-02-19 05:35] LABS: Albumin Globulin Ratio 1.2 (0.9-2); Albumin Level 3.9 gm/dl (3.4-5.0); BUN Creatinine Ratio 9.7 (10-20); Calcium 9.2 mg/dl (8.6-10.3); Creatinine Clr Calc Pharmacy 183.2 ml/min; Est GFR (African American) 142.1 ml/min; Est GFR (Non-African American) 122.6 ml/min; Globulin 3.2 gm/dl (2.5-4.0); Magnesium 2.1 mg/dl (1.7-2.4); Potassium 3.4 mmol/L (3.5-5.1); Total Protein 7.1 gm/dl (6.0-8.3)
[2023-02-19] MEDS: FOLIC ACID 1 MG TAB PO SCH (08:22)
[2023-02-19] MEDS: THIAMINE HCL 100 MG TAB PO SCH (08:22)
--- NOTE | 2023-02-19 19:26 | Hospitalist Progress Note ---
Date of Service February 19, 2023 Assessment & Plan (1) Alcohol withdrawal syndrome: Plan: Kavon Ralph is a 32yo M with PMH of alcohol use disorder here for concern of alcohol withdrawal. Alcohol withdrawal acute self-limited doing well - Last drink 02/17 11AM per patient - Drinking about 6 "tall boys" per day - AWSS protocol ordered -Patient started on Librium scheduled dose with tapering per pharmacy and gabapentin scheduled dose with tapering per pharmacy with marked improvement. Patient likely will possibly be discharged this weekend on both medications patient plans to stay with his mother and father - Thiamine and folate daily -Patient with outpatient coordinator rehab - Also mentioned he is interested in possibly using naltrexone IM for his AUD Depression/anxiety chronic unstable needs further outpatient attention - Patient reports seeing a therapist in outpt setting - No current medications (2) Alcohol abuse: (3) Major depression in partial remission: (4) Generalized anxiety disorder: Admission and Anticipated Discharge Date Admission Date: February 17, 2023 Subjective pt is without tremor and walking well in hallways, is motivated to have outpt alcohol councelling Physical Exam Physical Exam: Alert and oriented tremor resolved Results & Data Results & Data Vital Signs (Past 12 Hours) Vital Signs Temp Pulse Pulse Resp BP BP Pulse Ox 02/19/23 15:38 98.2 F 77 18 132/81 98 02/19/23 15:26 72 02/19/23 12:00 98.4 F 85 18 132/87 96 02/19/23 08:30 98.4 F 75 20 152/89 H 98 02/19/23 08:03 73 O2 Del Method 02/19/23 15:38 Room Air 02/19/23 15:26 02/19/23 12:00 Room Air 02/19/23 08:30 Room Air 02/19/23 08:03 Laboratory Results Reviewed CBC Reviewed chemistry PG Care Time/CCT Total # of Minutes Spent Total Time Spent with Patient: Total time spent is greater than 50% in coordination of care (as documented) at patient's floor/unit and/or counseling patient: Coding Level of Care Code 56256 SUB INP/OBS CARE 2/35MIN Diagnoses Alcohol withdrawal syndrome F10.930 Complication of substance-induced condition: uncomplicated Alcohol abuse F10.10 Major depression in partial remission F32.4 Generalized anxiety disorder F41.1 (1) Alcohol withdrawal syndrome Complication of substance-induced condition: uncomplicated Qualified Code(s): F10.930 - Alcohol use, unspecified with withdrawal, uncomplicated
[2023-02-20] MEDS: chlordiazePOXIDE HCl 25 MG CAP PO SCH ×2 (06:18→13:36)
[2023-02-20] MEDS: GABAPENTIN 600 MG TAB PO SCH (06:19)
[2023-02-20] MEDS: FOLIC ACID 1 MG TAB PO SCH (08:12)
[2023-02-20] MEDS: THIAMINE HCL 100 MG TAB PO SCH (08:12)
[2023-02-20] MEDS ORDERED: GABAPENTIN 600 MG TAB PO SCH (18:00)
--- NOTE | 2023-02-21 11:11 | Discharge Summary ---
Date of Service February 20, 2023 Admission HPI Per Admitting Provider Kavon Ralph is a 32yo M with PMH of alcohol use disorder here for concern of alcohol withdrawal. He states he has been drinking again as of the past 3 weeks due to a new job situation with new hours. Started with drinking 2-3 tall boys (16oz) of beer per day and now has gotten up to about 6 per day, which is consistent with his previous use. He states his last drink was today around 11AM and feels that he has already started to feel some withdrawal symptoms. He has been able to stop alcohol use in the past but is unable to maintain his abstinence. Symptoms currently include anxiety, mild tremors, abdominal discomfort. Currently denies [place], dizziness, n/v, CP, palp, SOB. Denies drug use. States he is interested in discussing inpt rehab and naltrexone for his AUD. Given Ativan 3mg x1, Ativan 2mg x1, Librium 100mg x1, and Banana bag x1 in ED. Admission Exam Per Admitting Provider General: A&Ox3. Appears tremulous. No acute distress HEENT: Atraumatic, normocephalic. Vision/hearing grossly intact. Pupils equal and reactive to light. Pulm: CTAB A&P. -wheezes, -rales, -rhonchi. Symmetrical chest rise. No increased work of breathing. No respiratory distress. Cardiac: Tachycardic, regular. No murmurs radial pulses intact and symmetrical. Abdominal: Mild epigastric tenderness, no rebound, soft, no guarding. BS present. Extremities: Warm, slightly moist. Bilateral hand tremor on extension, no asterixis. Sensation to soft touch intact in hands and feet. 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 Principal Diagnosis Alcohol Withdrawal Discharge Exam General Appearance: well-developed, well-nourished adult male in no acute distress. Not diaphoretic HEENT: NC/AT. Sclera anicteric. Skin: warm, dry, and intact Neuro: AAO x 3. No focal deficits. No tremors. Psych: Appropriate mood and affect. Does not appear anxious Discharge Data Allergies Allergy/AdvReac Type Severity Reaction Status Date / Time No Known Drug Allergies Allergy Verified 01/07/23 15:31 Consultations 02/17/23 22:40 ED Decision to Admit Stat Hospital Course (1) Alcohol withdrawal syndrome: Kavon Ralph is a 32yo M with PMH of alcohol use disorder here for concern of alcohol withdrawal. Alcohol withdrawal, acute self-limited - Last drink 02/17 11AM per patient - Drinking about 6 "tall boys" per day - He was treated with thiamine and folate daily while inpatient - AWSS protocol ordered --patient had very low AWSS scores (1 on day of discharge) - Patient started on Librium scheduled dose with tapering per pharmacy and gabapentin scheduled dose with tapering per pharmacy with marked improvement.Patient was sent out with remaining taper to finish. He was outside the window of etoh withdrawal seizures by the time of discharge -- nearly outside fo window of delirium tremens, but given overall appearance, felt this was extremely unlikley so discharged him with instructions to return if any symptoms developed. - Patient with outpatient coordinator rehab --> he already works with [employer]. He is willing to go to [facility]. He also has a social media [place] he is using -- "I am sober," which has provided him with motivation - Also mentioned he is interested in possibly using naltrexone IM for his AUD -- > script sent to pharmacy upon discharge. If this is not covered, consideration should be given to oral agent - He was provided with a work note Depression/anxiety chronic unstable needs further outpatient attention - Patient reports seeing a therapist in outpt setting - No current medications Total Time Total Time Spent Total Time Spent (In Minutes): 34 Total Time Includes: Examination of the Patient, Discharge Planning and Medication Reconciliation Discharge Plan Discharge Items Patient Disposition: Home - Self-Care Reason For Visit: ALCOHOL WITHDRAWAL Discharge Diagnosis: Alcohol Withdrawal Activity: Resume your previous activity Non-emergency contact: Primary Care Provider Call non-emergency contact if: you have any medication questions and your symptoms worsen Follow-up/Referrals: Thanh Somers, DO [Primary Care Provider] - Diet: Regular Addtl Attending Provider Instructions: You were hospitalized at [facility] for management of alcohol withdrawal. You were placed on a taper of a combination of medications that helps to manage/mitigate the symptoms of withdrawal ( gabapentin + Librium). You should complete the remainder of the taper at home upon discharge using the following schedule: Gabapentin: Take 600mg at 6pm on 02/20/23 Take 600mg at 6am on 02/21/23 Take 600mg at 6am on 02/22/23 Then STOP Librium Take 10mg at 10pm on 02/20/23 Take 10mg at 6am on 02/21/23 Take 10mg at 4pm on 02/21/23 Take 5mg 4am on 02/22/23 Take 5mg at 4pm on 02/22/23 Then STOP Additionally, you wanted to start injectable naltrexone, which can help you remain alcohol free. I sent a script for this into your pharmacy. Worse case scenario, you can always use the oral version if the injection is not covered. Please follow up with your PCP, Dr. Somers, within one week. Pending Studies at Discharge: No Stand-Alone Forms: [facility], Work/School Release, Smoking Cessation Medications and DC Order Prescriptions: New Vivitrol 380 mg suspension,extended rel recon 380 mg IM ONCE 30 Days Qty: 1 0RF gabapentin 600 mg tablet 600 mg PO DAILY 2 Days Qty: 3 0RF Discharge Orders: Discharge Order (Routine); Ordered 02/20/23 Ordered By: Nelsy Kirby Admission Data Admit Date/Time: 02/17/23 23:00 Attending Provider: Nelsy Kirby Admit Provider: Flex Crisostomo Primary Care Provider: Thanh Somers Other Providers: Octaviano Whitt Other Interventions: Discharge Summary Assessment (RN) Last Done: 02/20/23 14:47 Coding [place] [address] INP/OBS DISCH >30 MIN Patient Type Established Diagnoses Alcohol withdrawal syndrome F10.930 Complication of substance-induced condition: uncomplicated
[2023-02-22] MEDS ORDERED: chlordiazePOXIDE HCl 5 MG CAP PO SCH
[2023-02-22] MEDS ORDERED: GABAPENTIN 600 MG TAB PO SCH (06:00)
== END 2023-02-20 15:32 | disposition home or self-care (01) ==
LOC: ED 20:56 → SUATTDRO 23:00 → INTOOBSV 23:00 → EDINP 23:42 → 4W 23:47
DX: F10.930 Alcohol use, unspecified with withdrawal, uncomplicated